=== PATIENT | female | born 1950 | race Asian ===

== ENCOUNTER 2018-07-28 06:31 | Day surgery (SDC) | payer OTHER, MEDICAID ==
[~2018-07-28 06:31] MED LIST: CEFAZOLIN 2 GM/50 ML (PMX) 50 ML IVPB; SOD CHLORIDE 0.9% 1,000 ML IV
[2018-07-28] MEDS ORDERED: LIDOCAINE 2% (SDV) 5 ML INJ (07:00)
[2018-07-28] MEDS ORDERED: PROPOFOL 200 MG INJ (07:00)
[2018-07-28] MEDS ORDERED: CEFAZOLIN 1 GM INJ (07:00)
[2018-07-28] MEDS ORDERED: SUCCINYLCHOLINE CHLORIDE 100 MG/5 ML SYG IV (07:00)
[2018-07-28] MEDS ORDERED: DIPHENHYDRAMINE 50 MG INJ IV (14:30)
[2018-07-28] MEDS ORDERED: HYDROmorphONE 1 MG/5 ML IV SYRINGE IV ×2 (14:30)
[2018-07-28] MEDS ORDERED: LABETALOL HCL 20MG INJ IV (14:30)
[2018-07-28] MEDS ORDERED: FENTAnyl 50 MCG/ML VIAL (14:30)
[2018-07-28] MEDS ORDERED: FENTAnyl 50 MCG/ML VIAL IV (14:30)
[2018-07-28] MEDS ORDERED: morphine (1 MG/ML) 10ML SYRINGE IV ×2 (14:30)
[2018-07-28] MEDS ORDERED: ONDANSETRON 4 MG INJ IV (14:30)
[2018-07-28] MEDS ORDERED: ALBUTEROL 0.083% (NEB) 2.5 MG/3 ML AMP HHN (14:30)
[2018-07-28] MEDS ORDERED: MEPERIDINE 25 MG INJ IV (14:30)
[2018-07-28] MEDS ORDERED: OXYCODONE/ACETAMINOPHEN (5/325) TAB PO ×2 (14:30)
[2018-07-28] MEDS ORDERED: ONDANSETRON 4 MG INJ (14:42)
[2018-07-28] MEDS ORDERED: DEXAMETHASONE 4 MG/ML 1 ML INJ (14:42)
[2018-07-28] MEDS: FENTAnyl 50 MCG/ML VIAL IV (15:45)
== END 2018-07-28 17:00 | disposition home or self-care (01) ==
LOC: SDS 06:31
DX: Z45.2 Encounter for adjustment and management of vascular access device (principal); Z85.3 Personal history of malignant neoplasm of breast; I10 Essential (primary) hypertension
CPT/HCPCS: 36590; 71045; 88300; 93005